=== PATIENT | female | born 1965 | race Asian ===

== ENCOUNTER 2025-01-28 16:20 | Emergency (ER) | payer MEDICAID ==
[~2025-01-28] VITALS: Ht 162.6 cm; Wt 57.0 kg
[2025-01-28 16:44] VITALS: O2SAT 98
[2025-01-28] MEDS: PREDNISONE 20MG TABLET PO ONE (17:42)
[2025-01-28] MEDS: DIPHENHYDRAMINE 25MG CAPSULE PO ONE (17:42)
[2025-01-28 18:03] VITALS: BP 128/64; PULSE 97; RESP 18; TEMP 36.9; O2SAT 97
[2025-01-28] MEDS ORDERED: P50 MT (18:12)
[2025-01-28] MEDS ORDERED: DIPH25CA83 MT (18:12)
[2025-01-28] MEDS ORDERED: FAMO-135 MT (18:12)
== END 2025-01-28 18:20 | disposition home or self-care (01) ==
LOC: ER 16:20
DX: K12.30 Oral mucositis (ulcerative), unspecified (principal); E11.9 Type 2 diabetes mellitus without complications; E78.00 Pure hypercholesterolemia, unspecified; I10 Essential (primary) hypertension; Z98.890 Other specified postprocedural states; Z90.49 Acquired absence of other specified parts of digestive tract; Z90.710 Acquired absence of both cervix and uterus
CPT/HCPCS: 99283; Q0163; J7512